=== PATIENT | male | born 1965 | race Caucasian/White ===

== ENCOUNTER → 2020-04-19 | Outpatient (CLI) | payer SELFPAY ==
--- NOTE | 2020-04-19 11:07 | Diagnostic Imaging Report ---
INDICATION: Left hand pain and swelling. EXAMINATION: AP, and lateral views of left hand are obtained. FINDINGS: There is an acute nondisplaced fracture of the distal radius, without intra-articular extension. There is an ulnar styloid avulsion. Remaining bony structures appear intact. IMPRESSION: Distal radial nondisplaced fracture of the ulnar styloid avulsion. Remaining structures are intact. Dictated by: Dictated on workstation # [id number]
--- NOTE | 2020-04-19 11:19 | Diagnostic Imaging Report ---
INDICATION: Left wrist pain and swelling post fall. TECHNIQUE: AP and lateral views of the left wrist are obtained. FINDINGS: There is a nondisplaced fracture of the distal radius, without intra-articular extension. There is an ulnar styloid avulsion fracture. Remaining bony structures are intact. IMPRESSION: Nondisplaced distal radial fracture as well as ulnar styloid avulsion fracture. Dictated by: Dictated on workstation # [id number]
--- NOTE | 2020-04-19 11:21 | Diagnostic Imaging Report ---
INDICATION: Fall with left forearm pain. AP and lateral views of left forearm are obtained. FINDINGS: There is a nondisplaced slightly impacted distal radial fracture, without intraarticular extension. There is an ulnar styloid avulsion fracture. The proximal to mid portions of the radial and ulnar shafts are intact. IMPRESSION: Acute distal radial fracture with ulnar styloid avulsion fracture. Dictated by: Dictated on workstation # [id number]
== END ==
LOC: RAD FS 10:30
PROVIDERS: ATTEND Family Medicine
DX: S52.615A Nondisplaced fracture of left ulna styloid process, initial encounter for closed fracture (principal); S52.502A Unspecified fracture of the lower end of left radius, initial encounter for closed fracture; W19.XXXA Unspecified fall, initial encounter
CPT/HCPCS: 73100; 73120

== ENCOUNTER → 2020-05-06 | Outpatient (CLI) | payer SELFPAY ==
--- NOTE | 2020-05-06 11:14 | Diagnostic Imaging Report ---
INDICATION: Followup wrist fracture. COMPARISON: 04/19/2020 FINDINGS: Frontal and lateral radiograph views of the left wrist were obtained status post reduction and placement of radiopaque cast material. Since the previous exam, there has been interval posterior subluxation of the distal radial fracture fragment. There is also mild angulation with apex projecting anteriorly. Comminuted intra-articular fracture of the distal radius is also again identified. Ulnar styloid fracture is obscured by the radiopaque cast material. Radiocarpal joint space is maintained. No unexpected radiopaque foreign bodies are seen. IMPRESSION: 1. Slight interval derangement of alignment of the distal radius fracture fragments when compared to prior exam. Dictated by: Dictated on workstation # [id number]
== END ==
LOC: RAD FS 09:16
PROVIDERS: ATTEND Nurse Practitioner
DX: S52.532D Colles' fracture of left radius, subsequent encounter for closed fracture with routine healing (principal); S52.615D Nondisplaced fracture of left ulna styloid process, subsequent encounter for closed fracture with routine healing; Z98.890 Other specified postprocedural states
CPT/HCPCS: 73100

== ENCOUNTER → 2020-05-20 | Outpatient (CLI) | payer SELFPAY ==
--- NOTE | 2020-05-20 09:41 | Diagnostic Imaging Report ---
INDICATION: Wrist fracture, followup. TIME OF EXAM: 9:22 AM. COMPARISON: Correlation is made with the prior radiograph from 05/06/2020. FINDINGS: The overlying cast has been removed. The impacted fracture of the distal radius is again noted. While there is some sclerosis and blurring of the fracture lines consistent with healing, the fracture lines do remain clearly visible. The fracture of the ulnar styloid is again noted and remains ununited. The carpus is unremarkable. The metacarpals are unremarkable. The overall alignment is anatomic. IMPRESSION: Distal radius and ulnar fractures, as described. There is some healing of the distal radius fracture but fracture lines remain clearly visible. Dictated by: Dictated on workstation # [id number]
== END ==
LOC: RAD FS 09:19
PROVIDERS: ATTEND Nurse Practitioner
DX: S52.532D Colles' fracture of left radius, subsequent encounter for closed fracture with routine healing (principal); S52.612D Displaced fracture of left ulna styloid process, subsequent encounter for closed fracture with routine healing; X58.XXXD Exposure to other specified factors, subsequent encounter
CPT/HCPCS: 73100

== ENCOUNTER → 2020-06-03 | Outpatient (CLI) | payer SELFPAY ==
--- NOTE | 2020-06-03 10:53 | Diagnostic Imaging Report ---
INDICATION: Left wrist fracture followup. TECHNIQUE/COMPARISON: AP and lateral views of the left wrist were obtained and compared with 05/20/2020. FINDINGS: The slightly impacted fracture of the distal radius is again noted without definite intra-articular extension. There is slight dorsal angulation of the distal fragment relative to the proximal fragment, unchanged compared to the prior study. The ulnar styloid avulsion is again noted. The carpal bones are intact. IMPRESSION: Stable appearance of the distal radial fracture compared to 05/20/2020. The ulnar styloid avulsion is again noted. Dictated by: Dictated on workstation # [id number]
== END ==
LOC: RAD FS 09:24
PROVIDERS: ATTEND Nurse Practitioner
DX: S52.615D Nondisplaced fracture of left ulna styloid process, subsequent encounter for closed fracture with routine healing (principal); S52.532D Colles' fracture of left radius, subsequent encounter for closed fracture with routine healing; X58.XXXD Exposure to other specified factors, subsequent encounter
CPT/HCPCS: 73100

== ENCOUNTER → 2020-07-02 | Outpatient (CLI) | payer SELFPAY ==
--- NOTE | 2020-07-02 11:46 | Diagnostic Imaging Report ---
INDICATION: Follow-up wrist fracture. COMPARISON: 06/03/2020 FINDINGS: Multiple radiographic views of the left wrist were obtained and again demonstrate nonacute transversely oriented fracture of the distal radius. Fracture fragments are in stable alignment. Note is again made of partially bridging callus formation consistent with partial healing. There is also sclerosis about the fracture site. Overall, these findings do appear slightly progressed when compared to prior exam. Nonacute ulnar styloid fracture is also again noted. No new acute osseous abnormality is seen. Joint spaces are intact. There is prominent calcified arterial sclerosis. This is greater than expected given the patient's age. IMPRESSION: 1. Redemonstration of partially healed distal radial fracture. 2. Redemonstration of ulnar styloid fracture. 3. Advanced calcified arterial sclerosis. Correlation with underlying risk factors is recommended. Dictated by: Dictated on workstation # [id number]
== END ==
LOC: RAD FS 11:12
PROVIDERS: ATTEND Nurse Practitioner
DX: S52.615D Nondisplaced fracture of left ulna styloid process, subsequent encounter for closed fracture with routine healing (principal); I25.84 Coronary atherosclerosis due to calcified coronary lesion; X58.XXXD Exposure to other specified factors, subsequent encounter
CPT/HCPCS: 73110

== ENCOUNTER → 2021-11-28 | Outpatient (CLI) | payer OTHER ==
--- NOTE | 2021-11-28 11:11 | Diagnostic Imaging Report ---
INDICATION: Left wrist pain 2 views of left wrist shows an old healed fracture of the distal radius and ulna, ununited fracture of the ulnar styloid. There is no acute fracture or dislocation. Joint spaces well-maintained. IMPRESSION: Old fractures of the distal radius and ulna. No acute abnormality seen. Dictated by: Dictated on workstation # [id number]
== END ==
LOC: RAD 09:58
PROVIDERS: ATTEND Family Medicine
DX: Z02.71 Encounter for disability determination (principal); M25.532 Pain in left wrist
CPT/HCPCS: 73100